=== PATIENT | male | born 1990 | race Caucasian/White ===

== ENCOUNTER 2023-03-02 09:44 | Emergency (ER) | payer OTHER, BC ==
[2023-03-02] MEDS ORDERED: Lidocaine 2% 5 ML SDV INJECT ONE (10:02)
[2023-03-02] MEDS ORDERED: Bacitracin/Neomycin/Polymyxin B Oint 0.9 GM U/D Packet TOP ONE (10:03)
== END 2023-03-02 10:55 | disposition home or self-care (01) ==
LOC: KA.ED 09:44
DX: S61.213A Laceration without foreign body of left middle finger without damage to nail, initial encounter (principal); W26.0XXA Contact with knife, initial encounter; Y99.0 Civilian activity done for income or pay; Y92.89 Other specified places as the place of occurrence of the external cause
CPT/HCPCS: 12001; 99282; 99283; J3490